=== PATIENT | male | born 1970 | race Caucasian/White ===

== ENCOUNTER → 2017-02-12 | Outpatient (CLI) | payer OTHER ==
[2017-02-12 17:41] LABS: HEMATOCRIT 41.1 % (39.2-51.8); HEMOGLOBIN 14.2 g/dL (13.7-18.0); WHITE BLOOD COUNT 8.9 x10^3/uL (3.4-10)
== END | disposition home or self-care (01) ==
LOC: LAB 17:20
PROVIDERS: ATTEND Orthopaedic Surgery Foot and Ankle Surgery
DX: R22.42 Localized swelling, mass and lump, left lower limb (principal); R79.1 Abnormal coagulation profile
CPT/HCPCS: 36415; 85027; 85379; 85384; 85610; 85730